=== PATIENT | female | born 1975 | race Caucasian/White ===

== ENCOUNTER 2020-12-05 13:37 | Emergency (ER) | payer OTHER, SELFPAY ==
--- NOTE | ~2020-12-05 | XR_ITS ---
EXAMINATION: XR foot LT min 3V DATE: 12/05/2020 14:03 INDICATION: Left foot pain. TECHNIQUE: 4 views of left foot were obtained. COMPARISON: None. FINDINGS: There is a bunionette deformity of the fifth digit. No fracture. There is mild osteoarthrit is of first metatarsophalangeal joint. IMPRESSION: 1. Bunionette. 2. Mild osteoarthritis of first metatarsophalangeal joint. Reviewed, dictated and finalized at location A.
[2020-12-05 13:47] VITALS: BP 112/65; PULSE 76; RESP 16; TEMP 36.9; O2SAT 99
--- NOTE | 2020-12-05 13:48 | ED.LOWEXIN ---
HPI - Extremity Injury (Lower) General Chief Complaint: Extremity Injury, Lower Stated Complaint: Possible injury to the left Foot Time Seen by Provider: 12/05/20 13:48 Source: patient and RN notes reviewed History of Present Illness HPI Narrative: Patient is a 45-year-old female who presents the urgent care with complaints of left foot pain. Patient states that started approximately a month and a half ago and has been intermittently and does not stay in one spot. Patient states that initially it hurt just above the second and third digits of the left foot and now it is radiating down the lateral aspect of the left foot. Patient denies of any known injury or trauma. States that she has been taking Advil for the pain. Reports of no pain at rest and increased pain with weightbearing. No other acute complaints. No acute distress noted. Patient aware of the plan of care. Some parts of this dictation were generated by voice recognition software and may contain typographical and/or grammatical inaccuracies. Related Data Home Medications Medication Instructions Recorded Confirmed No Home Medications 12/05/20 12/05/20 Allergies Allergy/AdvReac Type Severity Reaction Status Date / Time No Known Allergies Allergy Verified 12/05/20 13:53 Review of Systems Review of Systems: CONSTITUTIONAL: Denies fever, chills, or sweats. EYES: Denies visual changes, redness, or discharge. ENT: Denies rhinorrhea, congestion, sore throat, or otalgia. CARDIOVASCULAR: Denies chest pain, palpitations, or edema. RESPIRATORY: Denies cough or dyspnea. GASTROINTESTINAL: Denies abdominal pain, nausea, vomiting, or diarrhea. GENITOURINARY: Denies dysuria or hematuria. SKIN: Denies rash or itching. MUSCULOSKELETAL: Reports of intermittent left foot pain exacerbated with activity/weightbearing NEUROLOGIC: Denies headache, numbness, or weakness. All other systems reviewed are negative, except as documented in HPI. PMFSH Comments At the time of my signature, I reviewed and agree with the nursing past medical, surgical, social, and family history. There is no relevant family history pertinent to the patient complaint. Exam Narrative: GENERAL: This is a well-nourished, well-developed patient, in no apparent distress. HEAD: normocephalic, atraumatic. EYES: PERRL. Sclera clear/white. Vision is grossly intact. EARS: External ears normal NOSE: External nose normal with no obvious nasal discharge, nares without redness, no rhinorrhea. THROAT: Mucous membranes moist NECK: Neck supple CARDIOVASCULAR: Regular rate and rhythm without murmurs, gallops, or rubs. RESPIRATORY: Clear to auscultation. Breath sounds equal bilaterally. No wheezes, rales, or rhonchi. SKIN: warm, intact with no suspicious lesions or rash, good texture and turgor. NEURO: awake, alert, and oriented to person, place and time. There were no obvious focal neurologic abnormalities. EXTREMITIES: No erythema, edema or ecchymosis noted to the left lower extremity. Positive strong left pedal pulse with capillary refill less than 2 seconds. Range of motion to left foot within normal limits. No deformity noted. Course Vital Signs Vital signs: Vital Signs Temperature 98.5 F 12/05/20 13:47 Pulse Rate 76 12/05/20 13:47 Respiratory Rate 16 12/05/20 13:47 Blood Pressure 112/65 12/05/20 13:47 Pulse Oximetry 99 12/05/20 13:47 Temperature 98.5 F 12/05/20 13:47 Pulse Rate 76 12/05/20 13:47 Respiratory Rate 16 12/05/20 13:47 Blood Pressure 112/65 12/05/20 13:47 Pulse Oximetry 99 12/05/20 13:47 Reviewed MDM - Extremity Injury (Lower) MDM Narrative Medical decision making narrative: Reviewed x-ray results with the patient. She is aware that x-ray was negative for fracture or deformity. There is notable osteoarthritis in the foot. Advised the patient to wear more supportive shoe and elevate/use Tylenol/ibuprofen as needed for pain. Follow-up with your PCP within 2
== END 2020-12-05 14:32 | disposition home or self-care (01) ==
PROVIDERS: Emergency Provider Nurse Practitioner Family
DX: M19.072 Primary osteoarthritis, left ankle and foot (principal)
CPT/HCPCS: 73630; 99213; G0463